=== PATIENT | female | born 1985 | race Caucasian/White ===

== ENCOUNTER 2017-07-23 20:30 | Inpatient (IN) | payer OTHER ==
[~2017-07-23] VITALS: Ht 167.6 cm; Wt 79.8 kg
[2017-07-23] MEDS ORDERED: LACTATED RINGER'S 1000 ML INJ 1,000 ML IV PRN (20:49)
[2017-07-23] MEDS ORDERED: Iron PO (20:58)
[2017-07-23] MEDS ORDERED: Prenatal Vitamin PO (20:58)
[2017-07-23] MEDS ORDERED: OXYTOCIN 30 UNITS-500ML PREMIX 500 ML IV ONE (21:00)
[2017-07-23] MEDS ORDERED: CITRIC ACID-SODIUM CITRATE LIQ 30 ML UDC PO SCH (21:00)
[2017-07-23] MEDS ORDERED: DINOPROSTONE 10 MG VAG INSERT VAGINAL ONE (21:00)
[2017-07-23] MEDS ORDERED: LIDOCAINE HCL 1% 50 ML VIAL INFIL PRN (21:00)
[2017-07-23] MEDS ORDERED: ONDANSETRON HCL 4 MG/2 ML VIAL IV PUSH PRN (21:00)
[2017-07-23] MEDS ORDERED: LIDOCAINE HCL 1% 50 ML VIAL I-DERMAL PRN (21:00)
[2017-07-23] MEDS ORDERED: SODIUM CHLORID 0.9% 500 ML INJ 500 ML IV PRN (21:00)
[2017-07-23] MEDS ORDERED: MINERAL OIL 10 ML VIAL TOPICAL PRN (21:00)
[2017-07-23] MEDS ORDERED: SODIUM CHLOR 0.9% 1000 ML INJ 1,000 ML IV PRN (21:09)
--- NOTE | 2017-07-23 22:08 | HHI.HP ---
HPI Chief Complaint Induction of labor Date Seen: Jul 23, 2017 Time Seen: 20:45 Travel History International Travel<30 Days: No Contact w/Intl Traveler<30Days: No Known Affected Area: No History of Present Illness HPI Mrs. Avila is a 31-year-old at 40/2 weeks gestation presenting for induction of labor. She states that she had some cramping earlier in the day, but no contractions. No vaginal bleeding, no leakage of fluid, she is feeling baby move. History Past Medical History Medical History: Denies Significant Hx Obstetric History Obstetric History 3-year-old son, Past Surgical History Narrative Surgical [place] teeth extraction Breast reduction Family History Family History: Negative Social History Alcohol Use: No Tobacco Use: No Substance Abuse: No Allergies-Medications (Allergen,Severity, Reaction): Coded Allergies: No Known Allergies (Unverified Allergy, Unknown, 07/23/17) Home Meds Reported Medications [Iron] No Conflict Check, 325 MG PO DAILY 07/23/17 [ Vitamin] No Conflict Check, 1 TAB PO DAILY 07/23/17 Review of Systems General / Constitutional: No: Fever, Chills Eyes: No: Blurred Vision HENT: No: Headaches Cardiovascular: No: Chest Pain or Discomfort Respiratory: No: Short of Breath Gastrointestinal: No: Changes in Bowel Habits Genitourinary: No: Dysuria Musculoskeletal: No: Weakness Skin: No Rash Physical Exam Narrative GENERAL: Well-nourished, well-developed patient. SKIN: Warm and dry. HEAD: Normocephalic and atraumatic. EYES: No scleral icterus. No injection or drainage. ENT: No nasal drainage noted. Mucous membranes pink. Airway patent. NECK: Supple, trachea midline. No JVD. CARDIOVASCULAR: Regular rate and rhythm without murmurs, gallops, or rubs. RESPIRATORY: Breath sounds equal bilaterally. No accessory muscle use. BREASTS: Bilateral exam showed no masses , no retractions, no nipple discharge. ABDOMEN/GI: Abdomen soft, non-tender, bowel sounds present, no rebound, no guarding Gravid to 40 weeks size EXTREMITIES: No cyanosis or edema. BACK: Nontender without obvious deformity. No CVA tenderness. NEUROLOGICAL: Awake and alert. Motor and sensory grossly within normal limits. Five out of 5 muscle strength in all muscle groups. Normal speech. Caprini VTE Risk Assessment Caprini VTE Risk Assessment: Mod/High Risk (score >= 2) Caprini Risk Assessment Model Point Value = 1 Point Value = 2 Point Value = 3 Point Value = 5 Age 41-60 Minor surgery BMI > 25 kg/m2 Swollen legs Varicose veins or History of unexplained or recurrent spontaneous Oral contraceptives or hormone replacement Sepsis (< 1 month) Serious lung disease, including pneumonia (< 1 month) Abnormal pulmonary function Acute myocardial infarction Congestive heart failure (< 1 month) History of inflammatory bowel disease Medical patient at bed rest Age 61-74 Arthroscopic surgery Major open surgery (> 45 min) Laparoscopic surgery (> 45 min) Malignancy Confined to bed (> 72 hours) Immobilizing plaster cast Central venous access Age >= 75 History of VTE Family history of VTE Factor V Leiden Prothrombin [id number] Lupus anticoagulant Anticardiolipin antibodies Elevated serum homocysteine Heparin-induced thrombocytopenia Other congenital or acquired thrombophilia Stroke (< 1 month) Elective arthroplasty Hip, pelvis, or leg fracture Acute spinal cord injury (< 1 month) Prophylaxis Regimen Total Risk Factor Score Risk Level Prophylaxis Regimen 0-1 Low Early ambulation 2 Moderate Order ONE of the following: *Sequential Compression Device (SCD) *Heparin 5000 units SQ BID 3-4 Higher Order ONE of the following medications: *Heparin 5000 units SQ TID *Enoxaparin/Lovenox 40 mg SQ daily (WT < 150 kg, CrCl > 30 mL/min) *Enoxaparin/Lovenox 30 mg SQ daily (WT < 150 kg, CrCl > 10-29 mL/min) *Enoxaparin/Lovenox 30 mg SQ BID (WT < 150 kg, CrCl > 30 mL/min) AND/OR *Sequential Compression Device (SCD) 5 or more Highest Order ONE of the following medications: *Heparin 5000 units SQ TID (Preferred with Epidurals) *Enoxaparin/Lovenox 40 mg SQ daily (WT < 150 kg, CrCl > 30 mL/min) *Enoxaparin/Lovenox 30 mg SQ daily (WT < 150 kg, CrCl > 10-29 mL/min) *Enoxaparin/Lovenox 30 mg SQ BID (WT < 150 kg, CrCl > 30 mL/min) AND *Sequential Compression Device (SCD) Data Data Orders Orders Admit To Inpatient (07/23/17 ) Code Status (07/23/17 20:49) Vital Signs (Adult) .Per protocol (07/23/17 20:49) Activity Oob Ad Amanda (07/23/17 20:49) Heart (07/23/17 20:49) Amnioinfusion (07/23/17 20:49) Urinary Catheter Management .ONCE (07/23/17 20:49) Diet Liquid (07/24/17 Breakfast) Lactated Ringer's 1000 Ml Inj (Lr 1000 M (07/23/17 20:49) Lactated Ringer's 1000 Ml Inj (Lr 1000 M (07/23/17 20:49) Sodium Chlorid 0.9% 500 Ml Inj (Ns 500 M (07/23/17 21:00) Sodium Chlor 0.9% 1000 Ml Inj (Ns 1000 M (07/23/17 21:09) Lidocaine 1% Inj (50 Ml) (Xylocaine 1% I (07/23/17 21:00) Citric Acid-Sodium Citrate Liq (Bicitra (07/23/17 21:00) Ondansetron Inj (Zofran Inj) (07/23/17 21:00) Fentanyl Inj (Fentanyl Inj) (07/23/17 21:00) Fentanyl Inj (Fentanyl Inj) (07/23/17 21:00) Complete Blood Count With Diff (07/23/17 20:49) Hold Clot (07/23/17 20:49) Abo/Rh Blood Type (07/23/17 20:49) Urinalysis - C+S If Indicated (07/23/17 20:49) Drug Screen, Random Urine (07/23/17 20:49) Ob/Psych Drug Screen, Urine (07/23/17 20:49) Type And Screen (07/23/17 20:49) Resp Oxygen Non Rebreathe Mask (07/23/17 ) ^ Epidural / Intrathecal Infus (07/23/17 20:49) Oxytocin 30 Units-500ml Premix (Pitocin (07/23/17 21:00) Lidocaine 1% Inj (50 Ml) (Xylocaine 1% I (07/23/17 21:00) Light Mineral Oil (Muri-Lube Oil) (07/23/17 21:00) ^ Labor Induction (07/23/17 20:49) ^ Vaginal Insert (07/23/17 20:49) Dinoprostone Vag Insert (Cervidil Vag In (07/23/17 21:00) Inpatient Certification (07/23/17 ) Specimen To Be Collected PRN (07/23/17 20:49) Specimen To Be Collected PRN (07/23/17 20:49) Group B Strep: Negative Assessment/Plan Problem List: (1) 40 weeks gestation of ICD Codes: Z3A.40 - 40 weeks gestation of Status: Acute Plan: 31-year-old at 40/2 weeks gestation presenting for induction of labor. Her OB provider is Dr. Osullivan. -Admit to labor and delivery -Induction by Cervidil -Monitor FHT for any distress Ely Fry MD R1 Jul 23, 2017 22:08
[2017-07-23 22:34] VITALS: BP 119/79; PULSE 92; RESP 18
[2017-07-23 23:00] VITALS: TEMP 98.4
[2017-07-23 23:03] LABS: AUTOMATED NEUTROPHIL # 6.3 TH/MM3 (1.8-7.7); BASOPHIL % 0.4 % (0.0-2.0); EOSINOPHIL % 0.4 % (0.0-4.0); HEMATOCRIT 31.9 % (35.0-46.0); HEMOGLOBIN 11.2 GM/DL (11.6-15.3); LYMPH % 21.8 % (9.0-44.0); LYMPHOCYTE # 1.9 TH/MM3 (1.0-4.8); MEAN CELL VOLUME 84.5 FL (80.0-100.0); MEAN CORPUSCULAR HEMOGLOBIN 29.6 PG (27.0-34.0); MEAN PLATELET VOLUME 8.4 FL (7.0-11.0); MONO % 7.3 % (0.0-8.0); MONOCYTE # 0.7 TH/MM3 (0-0.9); NEUT % 70.1 % (16.0-70.0); PLATELET COUNT 168 TH/MM3 (150-450); RED BLOOD COUNT 3.77 MIL/MM3 (4.00-5.30); WHITE BLOOD COUNT 8.9 TH/MM3 (4.0-11.0)
[2017-07-23 23:07] LABS: AMORPHOUS SEDIMENT, URINE RARE; BACTERIA, URINE RARE /hpf; BILIRUBIN, URINE NEG (NEG); BLOOD, URINE NEG (NEG); GLUCOSE,URINE NEG (NEG); KETONE, URINE NEG (NEG); NITRITE,URINE NEG (NEG); SQUAMOUS EPITHELIAL CELL URINE 1 /hpf (0-5); URINE COLOR LIGHT-YELLOW (YELLW/STRAW); URINE LEUKOCYTE ESTERASE MOD (NEG)
[2017-07-23] MEDS: LACTATED RINGER'S 1000 ML INJ 1,000 ML IV SCH (23:22)
[2017-07-23] MEDS ORDERED: ZOLPIDEM TARTRATE 10 MG TAB PO PRN (23:45)
[2017-07-24] VITALS (114 sets, daily range): BP systolic 80–141; BP diastolic 30–90; PULSE 62–131; RESP 16–18; TEMP 97.9–98.6; O2SAT 98–99
[2017-07-24] MEDS: LACTATED RINGER'S 1000 ML INJ 1,000 ML IV SCH ×2 (01:55→04:43)
[2017-07-24] MEDS ORDERED: fentaNYL 2MCG-BUPIV 0.125% INJ 100 ML ONE (03:26)
[2017-07-24] MEDS ORDERED: ePHEDrine/NS 25 MG/5 ML SYRINGE IV PUSH PRN (04:00)
[2017-07-24] MEDS ORDERED: NO SYSTEM NARCOTICS PRN (04:00)
[2017-07-24] MEDS ORDERED: DO NOT ADMINISTER ANTICOAGULANTS PRN (04:00)
[2017-07-24] MEDS ORDERED: fentaNYL 2MCG-BUPIV 0.125% 100 ML EPIDURAL PRN ×2 (04:00)
[2017-07-24] MEDS ORDERED: fentaNYL 2MCG-BUPIV 0.125% 150 ML EPIDURAL PRN (04:00)
[2017-07-24] MEDS ORDERED: OXYTOCIN 30 UNITS-500ML PREMIX 500 ML ONE (07:55)
--- NOTE | 2017-07-24 08:38 | PD.LABORPN ---
Subjective Subjective Patient doing well this AM. No complaints this AM. s/p epidural AROM performed by Dr. Osullivan Objective Vital Signs Vital Signs Date Time Temp Pulse Resp B/P (MAP) Pulse Ox O2 Delivery O2 Flow Rate FiO2 07/24/17 07:31 78 106/55 (72) 07/24/17 07:15 79 101/51 (68) 07/24/17 07:04 16 07/24/17 07:00 80 104/55 (71) 07/24/17 06:45 82 106/63 (77) 07/24/17 06:42 88 96/65 (75) 07/24/17 06:30 91 91/48 (62) 07/24/17 06:15 95 98/72 (81) 07/24/17 06:00 95 99/68 (78) 07/24/17 05:45 95 95/64 (74) 07/24/17 05:30 90 104/64 (77) 07/24/17 05:28 92 101/68 (79) 07/24/17 05:22 18 07/24/17 05:15 85 96/37 (56) 07/24/17 05:05 89 106/47 (66) 07/24/17 05:01 83 96/41 (59) 07/24/17 04:45 92 106/53 (70) 07/24/17 04:45 18 07/24/17 04:40 93 18 111/57 (75) 07/24/17 04:30 98 99/65 (76) 07/24/17 04:15 107 95/51 (66) 07/24/17 04:10 101 106/59 (75) 07/24/17 04:10 102 07/24/17 04:10 18 07/24/17 04:05 89 07/24/17 04:05 94 110/66 (81) 07/24/17 04:00 91 114/71 (85) 07/24/17 04:00 92 07/24/17 03:56 88 114/63 (80) 07/24/17 03:55 94 07/24/17 03:50 89 07/24/17 03:50 94 120/74 (89) 07/24/17 03:46 18 07/24/17 03:45 96 114/74 (87) 07/24/17 03:45 89 07/24/17 03:41 90 18 118/82 (94) 07/24/17 03:40 96 18 07/24/17 03:35 94 133/90 (104) 07/24/17 03:27 91 128/77 (94) 07/24/17 03:15 18 07/24/17 02:12 98.2 18 07/24/17 02:11 97 115/81 (92) Objective Pelvic Exam: Cervix: mid position Dilatation: 8 Effacement: 100 Station: -2 Presentation: vertex Membranes: AROM Uterine Contractions: every 2 min FHT's: Category: 1 Baseline: 130 Reactive: yes Variability: moderate Decels: no Assessment/Plan Problem List: (1) 40 weeks gestation of ICD Codes: Z3A.40 - 40 weeks gestation of Status: Acute Plan: 31-year-old at 40/2 weeks gestation presenting for induction of labor. Her OB provider is Dr. Osullivan. -Intrauterine -FHT 130s, category 1, reassuring -Patient induced with Cervidil -s/p epidural and AROM -patient making cervical change -GBS negative -Continue expectant management Angie Osullivan MD R1 Jul 24, 2017 08:38
--- NOTE | 2017-07-24 10:55 | PD.LABORPN ---
Subjective Subjective Patient doing well. IUPC placed. Objective Vital Signs Vital Signs Date Time Temp Pulse Resp B/P (MAP) Pulse Ox O2 Delivery O2 Flow Rate FiO2 07/24/17 09:01 84 16 119/52 (74) 07/24/17 09:00 84 07/24/17 08:45 88 118/72 (87) 07/24/17 08:31 92 120/73 (89) 07/24/17 08:24 97 114/77 (89) 07/24/17 08:16 90 141/88 (105) 07/24/17 08:10 98.6 16 07/24/17 08:01 84 96/50 (65) 07/24/17 07:46 80 103/52 (69) 07/24/17 07:31 78 106/55 (72) 07/24/17 07:15 79 101/51 (68) 07/24/17 07:04 16 07/24/17 07:00 80 104/55 (71) 07/24/17 06:45 82 106/63 (77) 07/24/17 06:42 88 96/65 (75) 07/24/17 06:30 91 91/48 (62) 07/24/17 06:15 95 98/72 (81) 07/24/17 06:00 95 99/68 (78) 07/24/17 05:45 95 95/64 (74) 07/24/17 05:30 90 104/64 (77) 07/24/17 05:28 92 101/68 (79) 07/24/17 05:22 18 07/24/17 05:15 85 96/37 (56) 07/24/17 05:05 89 106/47 (66) 07/24/17 05:01 83 96/41 (59) 07/24/17 04:45 92 106/53 (70) 07/24/17 04:45 18 07/24/17 04:40 93 18 111/57 (75) 07/24/17 04:30 98 99/65 (76) 07/24/17 04:15 107 95/51 (66) 07/24/17 04:10 101 106/59 (75) 07/24/17 04:10 102 07/24/17 04:10 18 07/24/17 04:05 89 07/24/17 04:05 94 110/66 (81) 07/24/17 04:00 91 114/71 (85) 07/24/17 04:00 92 07/24/17 03:56 88 114/63 (80) 07/24/17 03:55 94 07/24/17 03:50 89 07/24/17 03:50 94 120/74 (89) 07/24/17 03:46 18 07/24/17 03:45 96 114/74 (87) 07/24/17 03:45 89 07/24/17 03:41 90 18 118/82 (94) 07/24/17 03:40 96 18 07/24/17 03:35 94 133/90 (104) 07/24/17 03:27 91 128/77 (94) 07/24/17 03:15 18 Objective Pelvic Exam: Cervix: mid position Dilatation: 8 Effacement: 100 Station: -2 Presentation: vertex Membranes: AROM Uterine Contractions: every 2 min FHT's: Category: 1 Baseline: 130 Reactive: yes Variability: moderate Decels: no Assessment/Plan Problem List: (1) 40 weeks gestation of ICD Codes: Z3A.40 - 40 weeks gestation of Status: Acute Plan: 31-year-old at 40/2 weeks gestation presenting for induction of labor. Her OB provider is Dr. Osullivan. -Intrauterine -FHT 130s, category 1, reassuring -Patient induced with Cervidil -s/p epidural, AROM, and IUPC -Cervical change not observed, will start Pitocin 30 -GBS negative -Continue expectant management Angie Osullivan MD R1 Jul 24, 2017 10:55
[2017-07-24] MEDS ORDERED: OXYTOCIN 30 UNITS-500ML PREMIX 500 ML IV PRN (11:00)
--- NOTE | 2017-07-24 11:27 | HHI.PR ---
Subjective Remarks [facility] attending 31-year-old G5,P1, IUP at 40w was admitted for cervidil induction. She proceeded to enter labor on her own and was AROM by the team. Following her epidural, her contractions spaced out. Initially she was felt to be 8/C/0. I examined the patient, and felt her exam to be 6/80/-3. The head is somewhat asynclitic. An IUPC was placed to adequately monitor contractions. We will start oxytocin. GBS negative. heart tones are reassuring with a category 1 tracing. Objective Vital Signs Date Time Temp Pulse Resp B/P (MAP) Pulse Ox O2 Delivery O2 Flow Rate FiO2 07/24/17 10:35 93 07/24/17 10:31 95 89/46 (60) 07/24/17 10:30 93 07/24/17 10:25 90 07/24/17 10:20 87 07/24/17 10:15 90 111/73 (86) 07/24/17 10:15 83 07/24/17 10:10 16 07/24/17 10:10 83 07/24/17 10:05 90 98/76 (83) 07/24/17 10:01 94 81/39 (53) 07/24/17 10:00 91 07/24/17 09:55 88 07/24/17 09:50 90 07/24/17 09:45 88 116/75 (89) 07/24/17 09:45 87 07/24/17 09:40 88 07/24/17 09:35 86 07/24/17 09:31 88 07/24/17 09:31 114/80 (91) 07/24/17 09:30 90 07/24/17 09:25 83 07/24/17 09:20 83 07/24/17 09:15 85 112/74 (87) 07/24/17 09:15 86 07/24/17 09:10 83 07/24/17 09:01 84 16 119/52 (74) 07/24/17 09:00 84 07/24/17 08:45 88 118/72 (87) 07/24/17 08:31 92 120/73 (89) 07/24/17 08:24 97 114/77 (89) 07/24/17 08:16 90 141/88 (105) 07/24/17 08:10 98.6 16 07/24/17 08:01 84 96/50 (65) 07/24/17 07:46 80 103/52 (69) 07/24/17 07:31 78 106/55 (72) 07/24/17 07:15 79 101/51 (68) 07/24/17 07:04 16 07/24/17 07:00 80 104/55 (71) 07/24/17 06:45 82 106/63 (77) 07/24/17 06:42 88 96/65 (75) 07/24/17 06:30 91 91/48 (62) 07/24/17 06:15 95 98/72 (81) 07/24/17 06:00 95 99/68 (78) 07/24/17 05:45 95 95/64 (74) 07/24/17 05:30 90 104/64 (77) 07/24/17 05:28 92 101/68 (79) 07/24/17 05:22 18 07/24/17 05:15 85 96/37 (56) 07/24/17 05:05 89 106/47 (66) 07/24/17 05:01 83 96/41 (59) 07/24/17 04:45 92 106/53 (70) 07/24/17 04:45 18 07/24/17 04:40 93 18 111/57 (75) 07/24/17 04:30 98 99/65 (76) 07/24/17 04:15 107 95/51 (66) 07/24/17 04:10 101 106/59 (75) 07/24/17 04:10 102 07/24/17 04:10 18 07/24/17 04:05 89 07/24/17 04:05 94 110/66 (81) 07/24/17 04:00 91 114/71 (85) 07/24/17 04:00 92 07/24/17 03:56 88 114/63 (80) 07/24/17 03:55 94 07/24/17 03:50 89 07/24/17 03:50 94 120/74 (89) 07/24/17 03:46 18 07/24/17 03:45 96 114/74 (87) 07/24/17 03:45 89 07/24/17 03:41 90 18 118/82 (94) 07/24/17 03:40 96 18 07/24/17 03:35 94 133/90 (104) 07/24/17 03:27 91 128/77 (94) 07/24/17 03:15 18 07/24/17 02:12 98.2 18 07/24/17 02:11 97 115/81 (92) 07/23/17 23:00 98.4 07/23/17 22:34 92 18 119/79 (92) Result Diagram: 07/23/17 2245 Sheyla Scales MD Jul 24, 2017 11:27
[2017-07-24] MEDS ORDERED: PHENYLEPH/NS 1000 MCG/10 ML SYR IV ONE (12:00)
[2017-07-24] MEDS ORDERED: LACTATED RINGER'S 1000 ML INJ 1,000 ML IV ONE ×2 (12:00→15:49)
[2017-07-24] MEDS ORDERED: OXYTOCIN 10 UNIT/ML AMP IV ONE (12:00)
[2017-07-24] MEDS ORDERED: LIDOCAINE 2%/EPINEPHrine PF 1:200,000 20ML SDV OTHER ONE (12:00)
[2017-07-24] MEDS ORDERED: ONDANSETRON HCL 4 MG/2 ML VIAL IV ONE (12:00)
[2017-07-24] MEDS ORDERED: ePHEDrine/NS 25 MG/5 ML SYRINGE IV ONE (12:00)
[2017-07-24] MEDS ORDERED: ceFAZolin INJ 1,000 MG VIAL IV ONE (12:00)
[2017-07-24] MEDS ORDERED: DEXAMETHASONE SOD PHOS 4 MG/ML VIAL IV ONE (12:00)
--- NOTE | 2017-07-24 15:39 | HHI.PR ---
Subjective Remarks [facility] attending 31-year-old G5,P1, IUP at 40w was admitted for cervidil induction. She proceeded to enter labor on her own and was AROM by the team. Following her epidural, her contractions spaced out. Initially she was felt to be 8/C/0 without change management consultant 2-3h. I examined the patient, and felt her exam to be 6/80/ -3. The head is somewhat asynclitic and at this time is apparently malpositioned with brow palpated. She has continued to remain unchanged despite adequate contractions by IUPC and oxytocin. Will proceed with C/S. The risks, benefits, and alternatives were discussed with the patient at length including but not limited to pain, infection, bleeding, wound infection/ breakdown, injury to other organs like bladder, bowels, nerves, vessels, injury to the baby, need for hysterectomy, need for repeat operation, need for blood transfusion, and other possible risks. All the patient's questions were answered and consent has been signed and is on the chart. Objective Vital Signs Date Time Temp Pulse Resp B/P (MAP) Pulse Ox O2 Delivery O2 Flow Rate FiO2 07/24/17 13:00 83 112/75 (87) 07/24/17 12:50 84 07/24/17 12:45 62 105/59 (74) 07/24/17 12:40 66 16 07/24/17 12:35 70 07/24/17 12:30 69 07/24/17 12:30 74 107/61 (76) 07/24/17 12:25 71 07/24/17 12:20 71 07/24/17 12:15 71 106/62 (77) 07/24/17 12:15 67 07/24/17 12:10 98.5 16 07/24/17 12:10 70 07/24/17 12:05 72 07/24/17 12:00 77 07/24/17 12:00 81 94/59 (71) 07/24/17 11:55 68 07/24/17 11:50 79 07/24/17 11:45 74 07/24/17 11:45 78 105/58 (74) 07/24/17 11:40 78 07/24/17 11:35 82 07/24/17 11:30 79 100/58 (72) 07/24/17 11:30 79 07/24/17 11:25 80 07/24/17 11:20 78 07/24/17 11:15 82 07/24/17 11:15 80 104/63 (77) 07/24/17 11:10 80 07/24/17 11:10 16 07/24/17 11:05 78 07/24/17 11:00 78 07/24/17 11:00 78 98/56 (70) 07/24/17 10:55 84 07/24/17 10:50 85 07/24/17 10:45 81 110/79 (89) 07/24/17 10:45 93 07/24/17 10:40 87 07/24/17 10:35 93 07/24/17 10:31 95 89/46 (60) 07/24/17 10:30 93 07/24/17 10:25 90 07/24/17 10:20 87 07/24/17 10:15 90 111/73 (86) 07/24/17 10:15 83 07/24/17 10:10 16 07/24/17 10:10 83 07/24/17 10:05 90 98/76 (83) 07/24/17 10:01 94 81/39 (53) 07/24/17 10:00 91 07/24/17 09:55 88 07/24/17 09:50 90 07/24/17 09:45 88 116/75 (89) 07/24/17 09:45 87 07/24/17 09:40 88 07/24/17 09:35 86 07/24/17 09:31 88 07/24/17 09:31 114/80 (91) 07/24/17 09:30 90 07/24/17 09:25 83 07/24/17 09:20 83 07/24/17 09:15 85 112/74 (87) 07/24/17 09:15 86 07/24/17 09:10 83 07/24/17 09:01 84 16 119/52 (74) 07/24/17 09:00 84 07/24/17 08:45 88 118/72 (87) 07/24/17 08:31 92 120/73 (89) 07/24/17 08:24 97 114/77 (89) 07/24/17 08:16 90 141/88 (105) 07/24/17 08:10 98.6 16 07/24/17 08:01 84 96/50 (65) 07/24/17 07:46 80 103/52 (69) 07/24/17 07:31 78 106/55 (72) 07/24/17 07:15 79 101/51 (68) 07/24/17 07:04 16 07/24/17 07:00 80 104/55 (71) 07/24/17 06:45 82 106/63 (77) 07/24/17 06:42 88 96/65 (75) 07/24/17 06:30 91 91/48 (62) 07/24/17 06:15 95 98/72 (81) 07/24/17 06:00 95 99/68 (78) 07/24/17 05:45 95 95/64 (74) 07/24/17 05:30 90 104/64 (77) 07/24/17 05:28 92 101/68 (79) 07/24/17 05:22 18 07/24/17 05:15 85 96/37 (56) 07/24/17 05:05 89 106/47 (66) 07/24/17 05:01 83 96/41 (59) 07/24/17 04:45 92 106/53 (70) 07/24/17 04:45 18 07/24/17 04:40 93 18 111/57 (75) 07/24/17 04:30 98 99/65 (76) 07/24/17 04:15 107 95/51 (66) 07/24/17 04:10 101 106/59 (75) 07/24/17 04:10 102 07/24/17 04:10 18 07/24/17 04:05 89 07/24/17 04:05 94 110/66 (81) 07/24/17 04:00 91 114/71 (85) 07/24/17 04:00 92 07/24/17 03:56 88 114/63 (80) 07/24/17 03:55 94 07/24/17 03:50 89 07/24/17 03:50 94 120/74 (89) 07/24/17 03:46 18 07/24/17 03:45 96 114/74 (87) 07/24/17 03:45 89 07/24/17 03:41 90 18 118/82 (94) 07/24/17 03:40 96 18 07/24/17 03:35 94 133/90 (104) 07/24/17 03:27 91 128/77 (94) 07/24/17 03:15 18 07/24/17 02:12 98.2 18 07/24/17 02:11 97 115/81 (92) 07/23/17 23:00 98.4 07/23/17 22:34 92 18 119/79 (92) Result Diagram: 07/23/17 2245 Sheyla Scales MD Jul 24, 2017 15:38
[2017-07-24] MEDS ORDERED: MORPHINE SULFATE PF 5 MG/10 ML VIAL ONE (15:54)
[2017-07-24] MEDS ORDERED: DIPHTH/TETANUS/ACEL PERTUSSIS (BOOSTER) 0.5 ML VIAL/PFS IM ONE (16:00)
[2017-07-24] MEDS ORDERED: MEASLES, MUMPS, RUBELLA VACCINE 0.5 ML VIAL SQ ONE (16:00)
[2017-07-24] MEDS ORDERED: LACTATED RINGER'S 1000 ML INJ 1,000 ML IV SCH (16:19)
[2017-07-24] MEDS ORDERED: ceFAZolin 2 GM PREMIX 50 ML IV SCH (17:00)
[2017-07-24] MEDS ORDERED: OXYTOCIN 30 UNITS-500ML PREMIX 500 ML IV SCH (17:15)
[2017-07-24] MEDS ORDERED: ALUMINUM/MAGNESIUM/SIMETH 30 ML CUP PO PRN (17:15)
[2017-07-24] MEDS ORDERED: WITCH HAZEL 50%/GLYCERIN 12.5% 40 PAD JAR TOPICAL PRN (17:15)
[2017-07-24] MEDS ORDERED: SODIUM CHLORIDE 0.9% FLUSH 10 ML FLUSH IV FLUSH PRN (17:15)
[2017-07-24] MEDS ORDERED: IBUPROFEN 800 MG TAB PO PRN (17:15)
[2017-07-24] MEDS ORDERED: ACETAMINOPHEN 325 MG TAB PO PRN (17:15)
[2017-07-24] MEDS ORDERED: BENZOCAINE 20% TOPICAL SPRAY 60 ML CAN TOPICAL PRN (17:15)
[2017-07-24] MEDS ORDERED: ZOLPIDEM TARTRATE 5 MG TAB PO PRN (17:15)
[2017-07-24] MEDS ORDERED: oxyCODONE/ACETAMINOPHEN 5 MG/325 MG TAB PO PRN (17:15)
[2017-07-24] MEDS ORDERED: ONDANSETRON ODT 4 MG TAB PO PRN (17:15)
[2017-07-24] MEDS ORDERED: CITRIC ACID-SODIUM CITRATE LIQ 30 ML UDC PO SCH (17:30)
--- NOTE | 2017-07-24 17:32 | PD.OB.DELI ---
Procedure Note Section Procedure Performed by Sheyla Scales Procedure: Primary Low Transverse Sec Indication for delivery: malposition Informed consent obtained: For anesthesia, For procedure Confirmed correct: Patient, Procedure, Site, Time-out taken Anesthesia: Epidural Medication prior to procedure: As documented in eMAR Monitoring during procedure: Blood pressure monitoring, curator, doppler Urinary catheter: ml urine output (450cc clear urine at the end of procedure) Sterile preparation: Other (Chloraprep) Position: Supine with wedge to left side Operative Features Uterine Incision: Low transverse w/knife / blunt ext Membranes Ruptured: Previously Presentation: Brow presentation Delivery date: Jul 24, 2017 Delivery time: 16:29 Delivery of infant: Uneventful : Male One Minute : 6 Five Minute : 9 Weight: 8#7oz. Status of : Viable, Cord blood, Umbilical cord (Cord pH 7.26) Placenta delivered: Intact, Sent to pathology Medications: Antibiotics, Oxytocin Estimated blood loss: 600cc Procedure tolerated: Well Maternal Condition: Stable Condition: Stable Procedure in detail See dictation Sheyla Scales MD Jul 24, 2017 17:32
[2017-07-24] MEDS ORDERED: ACETAMINOPHEN 1000 MG/100 ML 100 ML IV ONE (17:39)
[2017-07-24] MEDS ORDERED: HYDROmorphone HCL PF 2 MG/ML VIAL ONE ×2 (18:01→18:28)
[2017-07-24] MEDS ORDERED: EPIDURAL-DIPHENHYDRAMINE HCL 50 MG/ML VIAL IV PUSH PRN (20:00)
[2017-07-24] MEDS ORDERED: EPIDURAL-NO SYSTEMIC NARCOTICS PRN (20:00)
[2017-07-24] MEDS ORDERED: EPIDURAL-DIPHENHYDRAMINE HCL 50 MG CAP PO PRN (20:00)
[2017-07-24] MEDS ORDERED: EPIDURAL-DO NOT ADMINISTER ANTICOAGULANTS PRN (20:00)
[2017-07-24] MEDS ORDERED: EPIDURAL-NALOXONE HCL 0.4 MG/ML AMP IV PUSH PRN (20:00)
[2017-07-24] MEDS ORDERED: SODIUM CHLORIDE 0.9% FLUSH 10 ML FLUSH IV FLUSH SCH (21:00)
[2017-07-25] MEDS: oxyCODONE/ACETAMINOPHEN 5 MG/325 MG TAB PO PRN ×6 (00:18→20:24)
[2017-07-25 00:19] VITALS: BP 134/78; PULSE 74; RESP 18; TEMP 97.5
--- NOTE | 2017-07-25 00:53 | MP ---
cc: Sheyla Scales MD DATE OF OPERATION: 07/24/2017 PREOPERATIVE DIAGNOSES: 1. Intrauterine at 40 weeks and 3 days. 2. Arrest of dilation. 3. Possible brow presentation. POSTOPERATIVE DIAGNOSES: 1. Intrauterine at 40 weeks point and 3 days. 2. Arrest of dilation. 3. Brow presentation. PROCEDURE PERFORMED: Primary low transverse section with 2-layer closure and no extensions via Pfannenstiel skin incision. DESCRIPTION OF FINDINGS: A viable male infant in the cephalic/brow presentation, Apgars 6/9, weight 8 pounds 7 ounces, cord pH 7.26. ATTENDING SURGEON: Dr. Sheyla Scales ASSISTANTS: Dr. Madi Steiner SPECIMENS REMOVED: Placenta. ESTIMATED BLOOD LOSS: 600 mL URINE OUTPUT: 450 mL clear urine at the end of the procedure. IV FLUIDS: 1300 mL INDICATIONS: The patient is a 31-year-old, G5, P1-0-3-1, who presented for induction of labor at 40 weeks and 2 days. She was induced with Cervidil and proceeded to have AROM. She entered active labor and progressed to 8/complete/0 with and an exam by different examiner. She progressed to about 8 cm dilated. Her labor was augmented with oxytocin and despite adequate contractions measured by an intrauterine pressure catheter for approximately 7 hours, the patient had no further cervical change, so the decision was made to proceed with delivery. PROCEDURE DESCRIPTION: After obtaining informed consent with the risks, benefits and alternatives discussed at length including, but not limited to pain, infection, bleeding, injury to other organs like the bladder, bowels nerves and vessels, injury to the baby, need for hysterectomy, need for a repeat operation, need for a blood transfusion, wound infection and breakdown and other complications, the patient was taken to the operating room with reassuring heart tones. Her epidural was redosed and she was noted to have blood-tinged urine prior to going to the OR. Once she was in the OR her epidural was redosed and reassuring heart tones confirmed. The patient was prepped and draped in normal sterile fashion in the dorsal supine position with a left lateral tilt. After once again confirming adequate anesthesia, the patient was prepped and draped in normal sterile fashion, and timeout procedure performed. Adequate anesthesia was once again performed and a Pfannenstiel skin incision was made with the scalpel and carried down to the level of the fascia. The fascia was nicked in the midline with the scalpel and the fascial incision extended laterally with the curved Shah scissors. The Isai clamps were applied to the superior aspect of the fascial incision which was dissected off the underlying rectus muscles bluntly and with sharp dissection. The Isai clamps were applied to the inferior aspect of the fascial incision, which was dissected off in a similar fashion. The rectus muscles were in the midline and the peritoneum entered bluntly. The peritoneal incision was extended bluntly. The Jorge self-retaining wound retractor was placed. The vesicouterine peritoneum was identified, grasped with the pickups and entered sharply with the Metzenbaum scissors. This incision was extended with the Metzenbaum scissors and the bladder flap created digitally. Lower uterine segment was carefully incised and the hysterotomy created bluntly. The hysterotomy was extended bluntly. The vertex was elevated to the level of the hysterotomy. The head was unable to be flexed, so the incision was stretched and with subsequent atraumatic delivery of the head, followed by atraumatic delivery of the remainder of the infant. The cord was doubly clamped and cut and the handed off to the waiting pediatric team. Cord segment was obtained for cord pH and cord blood was obtained for the nursery. The placenta was removed manually, and the uterus cleared of all clots and debris. The hysterotomy was repaired with a #1 chromic in a running locked fashion. A second layer of the same suture was used in imbricating fashion after which excellent hemostasis was noted. The gutters were cleared of all clots and debris and the hysterotomy reinspected. Due to the friable nature of the tissue Laura was placed to ensure adequate hemostasis. The patient was visualized to have normal maternal anatomy. The Jorge self-retaining wound retractor was removed and the peritoneum reapproximated with 2-0 Vicryl in a running fashion. The rectus muscles were examined and noted to be hemostatic. The fascia was reapproximated with #1 Vicryl in a running fashion. The subcutaneous tissue was irrigated with warm normal saline and noted to be hemostatic. The fascia was noted to be without defect. The subcutaneous tissue was closed with 2-0 Vicryl in an interrupted fashion. The skin edges were reapproximated with 3-0 Monocryl in subcuticular fashion. Dermabond was placed. All sponge, lap, needle counts were correct x 2. I performed the entire procedure. The patient was taken to the PACU in stable condition. Sheyla Scales MD SMS/rt , 11:51 PM , 12:52 AM
[2017-07-25 04:35] VITALS: BP 96/65; PULSE 70; RESP 18; TEMP 98.2
[2017-07-25 06:06] LABS: BASOPHIL % 0.3 % (0.0-2.0); EOSINOPHIL % 0.1 % (0.0-4.0); HEMATOCRIT 25.7 % (35.0-46.0); HEMOGLOBIN 9.2 GM/DL (11.6-15.3); LYMPH % 14.8 % (9.0-44.0); LYMPHOCYTE # 1.4 TH/MM3 (1.0-4.8); MEAN CELL VOLUME 84.8 FL (80.0-100.0); MEAN CORPUSCULAR HEMOGLOBIN 30.5 PG (27.0-34.0); MEAN CORPUSCULAR HGB CONC 35.9 % (32.0-36.0); MEAN PLATELET VOLUME 7.9 FL (7.0-11.0); MONO % 9.4 % (0.0-8.0); MONOCYTE # 0.9 TH/MM3 (0-0.9); NEUT % 75.4 % (16.0-70.0); PLATELET COUNT 133 TH/MM3 (150-450); RED BLOOD COUNT 3.03 MIL/MM3 (4.00-5.30); RED CELL DISTRIBUTION WIDTH 18.9 % (11.6-17.2); WHITE BLOOD COUNT 9.3 TH/MM3 (4.0-11.0)
[2017-07-25] MEDS: IBUPROFEN 600 MG TAB PO PRN ×3 (06:08→20:24)
[2017-07-25 08:00] VITALS: BP 114/70; PULSE 67; RESP 18; TEMP 97.9; O2SAT 97
--- NOTE | 2017-07-25 09:58 | HHI.OB ---
Subjective Remarks 31 year old female s/p primary C/S due to malpresentation at 40 wks gestation, POD 1. AFVSS. Patient reports she is feeling well. Bleeding is decreasing and pain is well-controlled. She is breast/formula feeding and bonding well with baby. Ambulating without difficulties. She is tolerating a diet without nausea or vomiting. She has not had a bowel movement. She has not passed gas. Denies chest pain, dysuria, shortness of breath, or calf pain. Objective Vitals/I&O Vital Signs Date Time Temp Pulse Resp B/P (MAP) Pulse Ox O2 Delivery O2 Flow Rate FiO2 07/25/17 08:00 67 114/70 (85) 07/25/17 08:00 97.9 97 07/25/17 08:00 18 07/25/17 04:35 98.2 70 18 96/65 (75) 07/25/17 00:19 97.5 74 18 134/78 (96) 07/24/17 20:37 98.3 75 18 131/79 (96) 07/24/17 18:48 81 124/62 (82) 07/24/17 18:35 86 16 125/73 (90) 99 07/24/17 18:20 98.5 81 16 120/78 (92) 99 07/24/17 18:01 81 16 120/68 (85) 99 07/24/17 17:20 97.9 89 16 109/57 (74) 99 07/24/17 16:10 16 07/24/17 15:46 90 116/73 (87) 07/24/17 15:30 84 122/74 (90) 07/24/17 15:15 103 121/68 (85) 07/24/17 15:10 98.5 16 07/24/17 15:01 131 80/30 (47) 07/24/17 14:45 76 128/77 (94) 07/24/17 14:40 83 07/24/17 14:35 86 99 07/24/17 14:30 88 114/79 (91) 99 07/24/17 14:25 94 99 07/24/17 14:20 87 98 07/24/17 14:15 87 124/89 (101) 99 07/24/17 14:10 86 99 07/24/17 14:10 16 07/24/17 14:00 82 127/89 (102) 07/24/17 13:45 88 117/73 (88) 07/24/17 13:00 83 112/75 (87) 07/24/17 12:50 84 07/24/17 12:45 62 105/59 (74) 07/24/17 12:40 66 16 07/24/17 12:35 70 07/24/17 12:30 69 07/24/17 12:30 74 107/61 (76) 07/24/17 12:25 71 07/24/17 12:20 71 07/24/17 12:15 71 106/62 (77) 07/24/17 12:15 67 07/24/17 12:10 98.5 16 07/24/17 12:10 70 07/24/17 12:05 72 07/24/17 12:00 77 07/24/17 12:00 81 94/59 (71) 07/24/17 11:55 68 07/24/17 11:50 79 07/24/17 11:45 74 07/24/17 11:45 78 105/58 (74) 07/24/17 11:40 78 07/24/17 11:35 82 07/24/17 11:30 79 100/58 (72) 07/24/17 11:30 79 07/24/17 11:25 80 07/24/17 11:20 78 07/24/17 11:15 82 07/24/17 11:15 80 104/63 (77) 07/24/17 11:10 80 07/24/17 11:10 16 07/24/17 11:05 78 07/24/17 11:00 78 07/24/17 11:00 78 98/56 (70) 07/24/17 10:55 84 07/24/17 10:50 85 07/24/17 10:45 81 110/79 (89) 07/24/17 10:45 93 07/24/17 10:40 87 07/24/17 10:35 93 07/24/17 10:31 95 89/46 (60) 07/24/17 10:30 93 07/24/17 10:25 90 07/24/17 10:20 87 4/25/18 10:15 90 111/73 (86) 07/24/17 10:15 83 07/24/17 10:10 16 07/24/17 10:10 83 07/24/17 10:05 90 98/76 (83) 07/24/17 10:01 94 81/39 (53) 07/24/17 10:00 91 Intake & Output 07/25/17 07/25/17 07:00 19:00 Output Total 1000 ml Balance -1000 ml Output Urine Total 1000 ml Result Diagram: 07/25/17 0550 Objective Remarks GENERAL: Well-nourished, well-developed patient. CARDIOVASCULAR: Regular rate and rhythm without murmurs, gallops, or rubs. RESPIRATORY: Breath sounds equal bilaterally. No accessory muscle use. ABDOMEN/GI: Abdomen soft, non-tender, bowel sounds present. Incision: Clean, dry and intact. Fundus: Firm, non-tender at umbilicus. GENITOURINARY: Light to moderate bleeding. EXTREMITIES: No cyanosis or edema, non-tender, without signs of DVT. Medications and IVs Current Medications Medications (Trade) Dose Ordered Sig/Chaka Route Start Time Stop Time Status Last Admin (Bicitra Liq) 30 ml DIVIDEND CLERK PO 07/23/17 21:00 07/27/17 20:59 (Zofran Inj) 4 mg Q6H PRN IV PUSH 07/23/17 21:00 Oxytocin 500 ml @ 0 mls/hr TITRATE PRN IV 07/24/17 11:00 Cefazolin Sodium/ Dextrose 50 ml @ 100 mls/hr DIVIDEND CLERK IV 07/24/17 17:00 07/28/17 16:59 (Bicitra Liq) 30 ml DIVIDEND CLERK PO 07/24/17 17:30 07/28/17 17:29 (NS Flush) 2 ml BID IV FLUSH 07/24/17 21:00 (NS Flush) 2 ml UNSCH PRN IV FLUSH 07/24/17 17:15 (Tylenol) 650 mg Q4H PRN PO 07/24/17 17:15 (Percocet 5-325 Mg) 1 tab Q4H PRN PO 07/24/17 17:15 (Percocet 5-325 Mg) 2 tab Q4H PRN PO 07/24/17 17:15 4/26/18 08:13 (Americaine 20% Top Spr) 1 spray Q4H PRN TOPICAL 07/24/17 17:15 (Tucks Pads) 1 applic QID PRN TOPICAL 07/24/17 17:15 (Yaz-Colace) 2 tab Q12H PRN PO 07/24/17 17:15 (Ambien) 5 mg HS PRN PO 07/24/17 17:15 (Mag-Al Plus Susp Liq) 15 ml Q8H PRN PO 07/24/17 17:15 (Zofran Odt) 4 mg Q6H PRN PO 07/24/17 17:15 Miscellaneous Information NO SYSTEMIC NARCOTICS TO BE GIVEN FO... UNSCH PRN .XX 07/24/17 20:00 07/25/17 19:59 (Narcan Inj) 0.4 mg UNSCH PRN IV PUSH 07/24/17 20:00 07/25/17 19:59 (Benadryl Inj) 25 mg Q6H PRN IV PUSH 07/24/17 20:00 07/25/17 19:59 (Benadryl) 50 mg Q6H PRN PO 07/24/17 20:00 07/25/17 19:59 Miscellaneous Information ALL NURSING DEPARTMENTS UNSCH PRN .XX 07/24/17 20:00 07/25/17 19:59 (Motrin) 600 mg Q6H PRN PO 07/24/17 23:30 07/25/17 06:08 Assessment/Plan Assessment and Plan 31 yo female s/p primary C/S due to malpresentation, POD 1 - AFVSS - Continue routine care - Motrin and Percocet PRN pain - Encourage OOB - Pelvic rest x 6 wks. Will need 1 week incision check. - Contraception: Undecided - Anticipate D/C 1-2 days sdw Angie Silva MD R1 Jul 25, 2017 09:58
[2017-07-25] MEDS: DOCUSATE SODIUM 50 MG/SENNA 8.6 MG TAB PO PRN (20:23)
[2017-07-26] MEDS: oxyCODONE/ACETAMINOPHEN 5 MG/325 MG TAB PO PRN ×6 (00:33→23:20)
[2017-07-26] MEDS: IBUPROFEN 600 MG TAB PO PRN ×3 (04:40→19:42)
[2017-07-26 08:00] VITALS: TEMP 97.8
--- NOTE | 2017-07-26 08:41 | HHI.OB ---
Subjective Remarks 31 year old female s/p primary C/S due to malpresentation at 40 wks gestation, POD 2. AFVSS. Patient reports she is feeling well. Bleeding is decreasing and pain is well-controlled. She is breast/formula feeding and bonding well with baby. Ambulating without difficulties. She is tolerating a diet without nausea or vomiting. She has not had a bowel movement. She has passed gas. Denies chest pain, dysuria, shortness of breath, or calf pain. Objective Vitals/I&O Vital Signs Date Time Temp Pulse Resp B/P (MAP) Pulse Ox O2 Delivery O2 Flow Rate FiO2 07/26/17 08:00 97.8 Result Diagram: 07/25/17 0550 Objective Remarks GENERAL: Well-nourished, well-developed patient. CARDIOVASCULAR: Regular rate and rhythm without murmurs, gallops, or rubs. RESPIRATORY: Breath sounds equal bilaterally. No accessory muscle use. ABDOMEN/GI: Abdomen soft, non-tender, bowel sounds present. Incision: Clean, dry and intact. Fundus: Firm, non-tender at umbilicus. GENITOURINARY: Light to moderate bleeding. EXTREMITIES: No cyanosis or edema, non-tender, without signs of DVT. Medications and IVs Current Medications Medications (Trade) Dose Ordered Sig/Chaka Route Start Time Stop Time Status Last Admin (Bicitra Liq) 30 ml TALK SHOW HOST PO 07/23/17 21:00 07/27/17 20:59 (Zofran Inj) 4 mg Q6H PRN IV PUSH 07/23/17 21:00 Oxytocin 500 ml @ 0 mls/hr TITRATE PRN IV 07/24/17 11:00 Cefazolin Sodium/ Dextrose 50 ml @ 100 mls/hr TALK SHOW HOST IV 07/24/17 17:00 07/28/17 16:59 (Bicitra Liq) 30 ml TALK SHOW HOST PO 07/24/17 17:30 07/28/17 17:29 (NS Flush) 2 ml BID IV FLUSH 07/24/17 21:00 07/25/17 20:25 (NS Flush) 2 ml UNSCH PRN IV FLUSH 07/24/17 17:15 (Tylenol) 650 mg Q4H PRN PO 07/24/17 17:15 (Percocet 5-325 Mg) 1 tab Q4H PRN PO 07/24/17 17:15 (Percocet 5-325 Mg) 2 tab Q4H PRN PO 07/24/17 17:15 07/26/17 04:39 (Americaine 20% Top Spr) 1 spray Q4H PRN TOPICAL 07/24/17 17:15 (Tucks Pads) 1 applic QID PRN TOPICAL 07/24/17 17:15 (Yaz-Colace) 2 tab Q12H PRN PO 07/24/17 17:15 07/25/17 20:23 (Ambien) 5 mg HS PRN PO 07/24/17 17:15 (Mag-Al Plus Susp Liq) 15 ml Q8H PRN PO 07/24/17 17:15 (Zofran Odt) 4 mg Q6H PRN PO 07/24/17 17:15 (Motrin) 600 mg Q6H PRN PO 07/24/17 23:30 07/26/17 04:40 Assessment/Plan Assessment and Plan 31 yo female s/p primary C/S due to malpresentation, POD 2 - AFVSS - Continue routine care - Motrin and Percocet PRN pain - Encourage OOB - Pelvic rest x 6 wks. Will need 1 week incision check. - Contraception: control pills - Anticipate D/C today or tomorrow Angie Osullivan MD R1 Jul 26, 2017 08:41
[2017-07-26] MEDS: DOCUSATE SODIUM 50 MG/SENNA 8.6 MG TAB PO PRN ×2 (09:28→23:20)
[2017-07-26] MEDS ORDERED: FERR325T98 PO (10:48)
[2017-07-26 20:00] VITALS: BP 119/69; PULSE 89; RESP 20; TEMP 98.3; O2SAT 100
[2017-07-27] MEDS: IBUPROFEN 600 MG TAB PO PRN ×2 (03:41→10:40)
[2017-07-27] MEDS: oxyCODONE/ACETAMINOPHEN 5 MG/325 MG TAB PO PRN ×2 (03:41→10:40)
[2017-07-27 08:00] VITALS: BP 118/71; PULSE 67; RESP 18; TEMP 97.6; O2SAT 97
--- NOTE | 2017-07-27 08:30 | HHI.OB ---
Subjective Post Operative Day: 3 Remarks Pt seen and examined this morning. Postoperative day # 3 AFVSS overnight. Incision not draining. Decreased lochia. Denies dysuria. No breast tenderness. She is feeding the baby via breast. Appetite good. No nausea or vomiting. Patient has not yet had a bowel movement, but does endorse bowel gas. Ambulating well. Denies calf pain or shortness of breath. Otherwise, she is doing well this morning and has no other concerns. Objective Vitals/I&O Vital Signs Date Time Temp Pulse Resp B/P (MAP) Pulse Ox O2 Delivery O2 Flow Rate FiO2 07/26/17 20:00 98.3 89 20 119/69 (86) 100 Result Diagram: 07/25/17 0500 Objective Remarks GENERAL: Well-nourished, well-developed patient. CARDIOVASCULAR: Regular rate and rhythm without murmurs, gallops, or rubs. RESPIRATORY: Breath sounds equal bilaterally. No accessory muscle use. ABDOMEN/GI: Abdomen soft, non-tender, bowel sounds present. Incision: Clean, dry and intact. Fundus: Firm, non-tender at umbilicus. GENITOURINARY: Light to moderate bleeding. EXTREMITIES: No cyanosis or edema, non-tender, without signs of DVT. Medications and IVs Current Medications Medications (Trade) Dose Ordered Sig/Chaka Route Start Time Stop Time Status Last Admin (Bicitra Liq) 30 ml COMPENSATION AND BENEFITS ADVISOR PO 07/23/17 21:00 07/27/17 20:59 (Zofran Inj) 4 mg Q6H PRN IV PUSH 07/23/17 21:00 Oxytocin 500 ml @ 0 mls/hr TITRATE PRN IV 07/24/17 11:00 Cefazolin Sodium/ Dextrose 50 ml @ 100 mls/hr COMPENSATION AND BENEFITS ADVISOR IV 07/24/17 17:00 07/28/17 16:59 (Bicitra Liq) 30 ml COMPENSATION AND BENEFITS ADVISOR PO 07/24/17 17:30 07/28/17 17:29 (NS Flush) 2 ml BID IV FLUSH 07/24/17 21:00 07/25/17 20:25 (NS Flush) 2 ml UNSCH PRN IV FLUSH 07/24/17 17:15 (Tylenol) 650 mg Q4H PRN PO 07/24/17 17:15 (Percocet 5-325 Mg) 1 tab Q4H PRN PO 07/24/17 17:15 (Percocet 5-325 Mg) 2 tab Q4H PRN PO 07/24/17 17:15 07/27/17 03:41 (Americaine 20% Top Spr) 1 spray Q4H PRN TOPICAL 07/24/17 17:15 (Tucks Pads) 1 applic QID PRN TOPICAL 07/24/17 17:15 (Yaz-Colace) 2 tab Q12H PRN PO 07/24/17 17:15 07/26/17 23:20 (Ambien) 5 mg HS PRN PO 07/24/17 17:15 (Mag-Al Plus Susp Liq) 15 ml Q8H PRN PO 07/24/17 17:15 (Zofran Odt) 4 mg Q6H PRN PO 07/24/17 17:15 (Motrin) 600 mg Q6H PRN PO 07/24/17 23:30 07/27/17 03:41 Assessment/Plan Problem List: (1) 40 weeks gestation of ICD Codes: Z3A.40 - 40 weeks gestation of Status: Acute Assessment and Plan 31 yo female s/p primary C/S due to malpresentation, POD 3 - AFVSS - Continue routine care - Motrin and Percocet PRN pain - Encourage OOB - Pelvic rest x 6 wks. Will need 1 week incision check. - Contraception: control pills, will discuss with OBGYN as outpatient - Anticipate D/C today DW: Dr. Roque Discharge Planning Today López Jaimes MD R2 Jul 27, 2017 08:30
[2017-07-27] MEDS ORDERED: PERI PO (08:31)
[2017-07-27] MEDS ORDERED: IBUP-232 PO (08:31)
[2017-07-27] MEDS ORDERED: OXYC1TAB63 PO (08:31)
--- NOTE | 2017-07-27 08:32 | HHI.DCPOC ---
Discharge Care Plan Diagnosis: (1) Single delivery by section Report Symptoms to Your Doctor -Temperature above 100.5 degrees -Redness, of incision or excessive or foul smelling drainage -Unusual pain or calf pain -Increased vaginal bleeding -Painful or difficulty urinating -Feelings of extreme sadness or anxiety after 2 weeks Goals to Promote Your Health * To prevent worsening of your condition and complications * To maintain your health at the optimal level Directions to Meet Your Goals Take your medications as prescribed Follow your dietary instruction Follow activity as directed Ensure plenty of rest for recovery Drink fluids for hydration Keep your appointments as scheduled Take your immunizations and boosters as scheduled If your symptoms worsen call your PCP, if no PCP go to Urgent Care Center or Emergency Room Smoking is Dangerous to Your Health. Avoid second hand smoke Call the 24-hour crisis hotline for domestic abuse at López Jaimes MD R2 Jul 27, 2017 08:31
== END 2017-07-27 23:30 | disposition home or self-care (01) | DRG 766 ==
LOC: H2EA 20:30 → H1EA 07-24 19:30
PROVIDERS: ADMIT Obstetrics & Gynecology; ATTEND Obstetrics & Gynecology
PROC: 10907ZC Drainage of Amniotic Fluid, Therapeutic from Products of Conception, Via Natural or Artificial Opening (ICD-10-PCS; 2017-07-23)
PROC: 00HU33Z Insertion of Infusion Device into Spinal Canal, Percutaneous Approach (ICD-10-PCS; 2017-07-23)
PROC: 3E0R3BZ Introduction of Anesthetic Agent into Spinal Canal, Percutaneous Approach (ICD-10-PCS; 2017-07-23)
PROC: 3E0P7VZ Introduction of Hormone into Female Reproductive, Via Natural or Artificial Opening (ICD-10-PCS; 2017-07-23)
PROC: 10D00Z1 Extraction of Products of Conception, Low, Open Approach (ICD-10-PCS; principal; 2017-07-24)
DX: O62.0 Primary inadequate contractions (principal); O32.3XX0 Maternal care for face, brow and chin presentation, not applicable or unspecified; Z3A.40 40 weeks gestation of pregnancy; Z37.0 Single live birth; Z23 Encounter for immunization
CPT/HCPCS: 59025; 80307; 81001; 82805; 85025; 87086; 88307; J0131; J0690; J1100; J1170; J2274; J2370; J2405; J2590; J3010; J7120